=== PATIENT | male | born 1965 | race Caucasian/White ===

== ENCOUNTER 2016-04-17 23:27 | Emergency (ER) | payer OTHER ==
[2016-04-18] MEDS ORDERED: CEPHALEXIN 500 MG CAPSULE ONE (00:28)
== END 2016-04-18 00:34 | disposition home or self-care (01) ==
LOC: ED 23:27
DX: S61.255A Open bite of left ring finger without damage to nail, initial encounter (principal); I10 Essential (primary) hypertension; E11.9 Type 2 diabetes mellitus without complications; Z79.84 Long term (current) use of oral hypoglycemic drugs; W54.0XXA Bitten by dog, initial encounter; Y92.009 Unspecified place in unspecified non-institutional (private) residence as the place of occurrence of the external cause
CPT/HCPCS: 99283 ×2; 12002 ×2; A9270